=== PATIENT | female | born 1950 | race Caucasian/White ===

== ENCOUNTER → 2023-12-11 | Outpatient (CLI) | payer OTHER, SELFPAY ==
--- NOTE | 2023-12-11 14:31 | CT_ITS ---
INDICATION: B18.2 Chronic viral hepatitis C EXAMINATION: CT ABDOMEN WITH AND WITHOUT CONTRAST TECHNIQUE: Helically acquired images were obtained of the abdomen both before and after IV contrast. A radiation dose optimization technique was used for this scan. IV Contrast dosage and agent: 100 cc of Isovue-300 Oral contrast: None. RADIATION DOSAGE (If Supplied By Facility): CTDIvol = ( 12.43 ) mGy, DLP = ( 1037.52 ) mGycm COMPARISON: No relevant prior comparison study available FINDINGS: LOWER CHEST: Lung bases are clear. No cardiomegaly or pericardial effusion. LIVER: Homogeneous. No focal mass. Patent portal vein. GALLBLADDER AND BILIARY TREE: No calcified gallstones. No gallbladder distension or wall edema. No intra- or extrahepatic biliary ductal dilation. PANCREAS: No focal cystic or solid mass. SPLEEN: Normal size without focal cystic or solid mass. ADRENAL GLANDS: No nodules. KIDNEYS AND URETERS: Normal renal size and position. No hydronephrosis or nephrolithiasis. PERITONEUM: No ascites or free air. No other fluid collection. BOWEL: No stomach or bowel distension. No focal inflammatory change. LYMPH NODES: No enlarged mesenteric or retroperitoneal lymph nodes. VESSELS: Atherosclerotic calcifications of the abdominal aorta without evidence of aneurysm. ABDOMINAL WALL: No discrete abdominal wall hernia. BONES: Degenerative changes of the spine. Narrowing of L4-L5 disc spaces. Grade 1 anterolisthesis of L4 over L5. CT/Abdomen W/WO IV Contrast IMPRESSION: 1. No focal acute inflammatory process. 2. No focal lesion is seen in the liver. 3. Degenerative changes in the lower lumbar spine. Electronically Signed: Jamie Dove MD at 15:36 EST ,
[2023-12-11 15:21] LABS: CREATININE FINGERSTICK < 1.0 mg/dL (0.55-1.02); EGFR FINGERSTICK > 60.0000 mL/min (>60)
== END | disposition home or self-care (01) ==
PROVIDERS: PCP Internal Medicine
DX: B18.2 Chronic viral hepatitis C (principal)
CPT/HCPCS: 74170; Q9967